=== PATIENT | female | born 1970 | race Caucasian/White ===

== ENCOUNTER → 2017-11-26 06:15 | Outpatient (CLI) | payer MEDICAID, SELFPAY ==
--- NOTE | 2017-11-26 06:15 | DT_ITS ---
This patient was seen during an EMR downtime November 19, 2017 - November 26, 2017. This patient may have a combination of paper and electronic documentation or all paper documentation. All documentation is viewable within the e-chart portion of [facility] for each patient visit.
--- NOTE | 2017-11-26 18:06 | STRESSREP ---
Stress Test Report Pharmacologic myocardial perfusion stress test. 47-year-old lady with a history of chest pain. Stress protocol: Resting EKG demonstrates normal sinus rhythm with a rate of 71 bpm normal blood pressures 138/88 mmHg. The patient exercised according to the regular [facility] protocol for total duration of 7 minutes and 27 seconds attaining a maximum heart rate of 136 bpm which was 78% of maximum predicted heart rate the maximum workload attained was 9.2 metabolic equivalents. The patient maintained sinus rhythm throughout the recording with no ST or T-wave changes noted suggest ischemia. Nonspecific ST-T wave changes were noted the resting blood pressure is 120/50 with a final blood pressure 120/84 mmHg. The peak blood pressure was 138/88 mmHg. Due to inability to obtain 85% of the maximum predicted heart rate the test was changed to a pharmacologic myocardial perfusion stress test. 0.4 mg of regadenoson was infused per usual protocol followed by rapid intravenous saline flush injection continuous EKG monitoring was performed. Nonspecific ST-T wave changes were noted. Myocardial perfusion protocol. 10.3 mCi of technetium 99m sestamibi was injected. 0.4 mg of regadenoson was then infused per usual protocol followed by rapid intravenous saline flush injection. At peak exercise 32.8 mCi of technetium 99m sestamibi was injected. Stress images were obtained stress and rest images were reconstructed and compared in the short axis vertical long and horizontal long axis. Gated images were also obtained. Perfusion SPECT analysis: Review of the stress images demonstrate normal uptake of tracer noted in all areas of the myocardium. The resting images similarly demonstrate normal uptake of tracer noted in all areas of the myocardium. No areas of reversibility are noted suggest ischemia. No previous infarct is noted. Gated SPECT analysis: The gated ejection fraction is 73%. Conclusion: Normal pharmacologic myocardial perfusion stress test. Preserved ejection fraction.
== END ==
PROVIDERS: Visit Provider Internal Medicine Cardiovascular Disease
DX: I25.10 Atherosclerotic heart disease of native coronary artery without angina pectoris (principal)
CPT/HCPCS: 78452; 93017; A9500; A4216; J2785